=== PATIENT | female | born 1960 | race Caucasian/White ===

== ENCOUNTER 2019-12-28 14:33 | Emergency (ER) | payer MEDICAID, OTHER ==
[2019-12-28 15:09] LABS: BASOPHILS # (AUTO) 0.1 10^3/uL (0.0-0.1); BASOPHILS % (AUTO) 0.8 %; EOSINOPHILS # (AUTO) 0.2 10^3/uL (0.0-0.7); EOSINOPHILS % (AUTO) 1.9 %; HGB - HEMOGLOBIN 13.9 g/dL (12.0-16.0); LYMPHOCYTES # (AUTO) 3.5 10^3/uL (1.5-3.5); LYMPHOCYTES % (AUTO) 37.8 %; MEAN CORPUSCULAR HEMOGLOBIN 30.7 pg (27.0-31.0); MEAN CORPUSCULAR HGB CONC 32.6 g/dL (32.0-36.0); MEAN PLATELET VOLUME 9.7 fL (7.9-10.8); MONOCYTES # (AUTO) 0.7 10^3/uL (0.0-1.0); MONOCYTES % (AUTO) 7.6 %; NEUTROPHILS # (AUTO) 4.8 10^3/uL (1.5-6.6); NEUTROPHILS % (AUTO) 51.5 %; PLT - PLATELET COUNT 238 10^3/uL (130-450); RED BLOOD COUNT 4.53 10^6/uL (4.20-5.40); RED CELL DISTRIBUTION WIDTH 13.1 % (12.0-15.0); WHITE BLOOD COUNT 9.3 x10^3/uL (4.8-10.8)
[2019-12-28 15:20] LABS: ALBUMIN 4.2 g/dL (3.2-5.5); ALBUMIN/GLOBULIN RATIO 1.7 (1.0-2.2); BILIRUBIN,TOTAL 1.2 mg/dL (0.2-1.0); CALCIUM 9.3 mg/dL (8.5-10.3); CREATININE 0.7 mg/dL (0.4-1.0); TOTAL PROTEIN 6.7 g/dL (6.7-8.2)
--- NOTE | 2019-12-28 15:26 | XRAY Report ---
Reason: Chest pain Procedure Date: 12/28/2019 Accession Number: [id number] / [id number] Procedure: XR - Chest 1 View X-Ray CPT Code: 30451 Final Report FULL RESULT: EXAM: CHEST RADIOGRAPHY 1 VIEW EXAM DATE: 12/28/2019. CLINICAL HISTORY: Chest pain. COMPARISON: None. TECHNIQUE: AP upright portable chest at 1457. FINDINGS: Lungs/Pleura: Normal vasculature. The lungs are clear. No pleural fluid or pneumothorax. Mediastinum: Normal cardiac and mediastinal contours. Bones: Degenerative changes of the spine. IMPRESSION: Normal examination. RADIA
--- NOTE | 2019-12-28 15:31 | ED Physician Documentation ---
History of Present Illness - Stated complaint Stated Complaint: PALPITATIONS/FATIGUE - Chief complaint Chief Complaint: Cardiac - History obtained from History obtained from: Patient - History of Present Illness Timing: How many days ago (3) Pain level max: 2 Pain level now: 1 - Additonal information Additional information: 59-year-old female presents to the emergency department stating that she has just not felt right for the past 3 days. She states she feels tired and fatigued. Occasionally she feels short of breath. Occasionally she feels like her heart races. Occasionally she gets a sharp pain in the left side of her neck. Currently she is feeling fine sitting here relaxing. She was started on Jardiance for diabetes approximately a month ago. She also takes allergy medication. She states she has been eating and drinking normally. Review of Systems Ten Systems: 10 systems reviewed and negative Constitutional: denies: Fever, Chills Ears: denies: Ear pain Nose: denies: Rhinorrhea / runny nose, Congestion GI: denies: Abdominal Pain, Vomiting, Diarrhea Skin: denies: Rash Musculoskeletal: denies: Neck pain, Back pain Neurologic: denies: Headache PD PAST MEDICAL HISTORY - Past Medical History Past Medical History: No - Past Surgical History Past Surgical History: No - Allergies Allergies/Adverse Reactions: Allergies Allergy/AdvReac Type Severity Reaction Status Date / Time Penicillins Allergy Anaphylaxis Verified 12/28/19 14:50 - Living Situation Living Arrangement: reports: At home - Social History Does the pt smoke?: No Does the pt have substance abuse?: No - Family History Family history: reports: Non contributory PD ED PE NORMAL - Vitals Vital signs reviewed: Yes - General General: Alert and oriented X 3, No acute distress, Well developed/nourished - HEENT HEENT: Moist mucous membranes - Neck Neck: Supple, no meningeal sign - Cardiac Cardiac: RRR, Strong equal pulses - Respiratory Respiratory: No respiratory distress, Clear bilaterally - Abdomen Abdomen: Soft, Non tender, Non distended - Derm Derm: Warm and dry - Neuro Neuro: Alert and oriented X 3 - Psych Psych: Normal mood, Normal affect Results - Vitals Vitals: Vital Signs - 24 hr 12/28/19 12/28/19 12/28/19 14:45 15:25 16:00 Temperature 36.7 C Heart Rate 75 61 76 Respiratory 16 13 16 Rate Blood Pressure 180/92 H 157/70 H 155/61 H O2 Saturation 96 100 99 Oxygen O2 Source Room air - EKG (time done) 1446 Rate: Rate (enter#) (65) Rhythm: NSR Mcintosh: Normal Intervals: Normal NM QRS: Normal Ischemia: Normal ST segments, Q waves (V1-2) - Labs Labs: Laboratory Tests 12/28/19 12/28/19 12/28/19 15:00 15:00 15:00 WBC 9.3 RBC 4.53 Hgb 13.9 Hct 42.6 MCV 94.0 MCH 30.7 MCHC 32.6 RDW 13.1 Plt Count 238 MPV 9.7 Neut # (Auto) 4.8 Lymph # (Auto) 3.5 Bee # (Auto) 0.7 Eos # (Auto) 0.2 Baso # (Auto) 0.1 Absolute Nucleated RBC 0.00 Nucleated RBC % 0.0 Sodium 137 Potassium 3.8 Chloride 101 Carbon Dioxide 28 Anion Gap 8.0 BUN 22 H Creatinine 0.7 Estimated GFR (MDRD) 85 L Glucose 187 H Calcium 9.3 Total Bilirubin 1.2 H AST 29 ALT 31 Alkaline Phosphatase 78 Troponin I High Sens < 2.3 L Total Protein 6.7 Albumin 4.2 Globulin 2.5 Albumin/Globulin Ratio 1.7 Lipase 36 Urine Color Urine Clarity Urine pH Ur Specific [place] Urine Protein Urine Glucose (UA) Urine Ketones Urine Occult Blood Urine Nitrite Urine Bilirubin Urine Urobilinogen Ur Leukocyte Esterase Ur Microscopic Review Urine Culture Comments 12/28/19 15:40 WBC RBC Hgb Hct MCV MCH MCHC RDW Plt Count MPV Neut # (Auto) Lymph # (Auto) Bee # (Auto) Eos # (Auto) Baso # (Auto) Absolute Nucleated RBC Nucleated RBC % Sodium Potassium Chloride Carbon Dioxide Anion Gap BUN Creatinine Estimated GFR (MDRD) Glucose Calcium Total Bilirubin AST ALT Alkaline Phosphatase Troponin I High Sens Total Protein Albumin Globulin Albumin/Globulin Ratio Lipase Urine Color YELLOW Urine Clarity CLEAR Urine pH 5.0 Ur Specific [place] 1.025 Urine Protein NEGATIVE Urine Glucose (UA) >=1000 H Urine Ketones NEGATIVE Urine Occult Blood NEGATIVE Urine Nitrite NEGATIVE Urine Bilirubin NEGATIVE Urine Urobilinogen 0.2 (NORMAL) Ur Leukocyte Esterase NEGATIVE Ur Microscopic Review NOT INDICATED Urine Culture Comments NOT INDICATED - Rads (name of study) cxr Radiology: Prelim report reviewed, EMP read contemporaneously, See rad report (Normal examination. ) PD MEDICAL DECISION MAKING - ED course Complexity details: reviewed results, re-evaluated patient, considered differential (No ST elevation OR, no aortic dissection, no PE, no tension pneumothorax, no aortic aneurysm), d/w patient ED course: 59-year-old female with what appears to be dehydration. She feels better after IV fluids. No evidence of acute coronary syndrome. No evidence of PE. No evidence of aortic dissection. She is very well-appearing, nontoxic. Afebrile. Patient counseled regarding signs and symptoms for which I believe and urgent re-evaluation would be necessary. Patient with good understanding of and agreement to plan and is comfortable going home at this time This document was made in part using voice recognition software. While efforts are made to proofread this document, sound alike and grammatical errors may occur. We did have an unusually warm weekend last weekend with temperatures on Thursday reaching over 80 degrees. Departure - Departure Disposition: 01 Home, Self Care Clinical Impression: Dehydration, Palpitations, Atypical chest pain Condition: Good Instructions: ED Chest Pain Atypical Unkn Cause, ED Dehydration Follow-Up: Yanelis Schwartz MD [Primary Care Provider] - Within 1 week Comments: Your tests are normal today. There is no evidence of heart attack. No evidence of blood clot in the lungs. No evidence of lethal arrhythmia. If the palpitations continue, you should have a Holter monitor with your doctor. Return if you worsen
[2019-12-28 15:50] LABS: BILIRUBIN,URINE NEGATIVE (NEGATIVE); CLARITY,URINE CLEAR (CLEAR); GLUCOSE, URINE (UA) >=1000 mg/dL (NEGATIVE); KETONES,URINE (UA) NEGATIVE (NEGATIVE); LEUKOCYTE ESTERASE, URINE NEGATIVE (NEGATIVE); NITRITE,URINE NEGATIVE (NEGATIVE); OCCULT BLOOD,URINE NEGATIVE (NEGATIVE); PROTEIN,URINE NEGATIVE (NEGATIVE); UROBILINOGEN,URINE 0.2 (NORMAL) E.U./dL (NORMAL)
[2019-12-28] MEDS: SODIUM CHLORIDE 0.9% 1,000 ML IV ONE (16:35)
[2019-12-28 17:12] VITALS: BP 126/95
== END 2019-12-28 17:11 | disposition home or self-care (01) ==
LOC: ED 14:33
DX: E86.0 Dehydration (principal); R00.2 Palpitations; R07.89 Other chest pain; E11.9 Type 2 diabetes mellitus without complications; Z79.84 Long term (current) use of oral hypoglycemic drugs
CPT/HCPCS: 36415; 71045; 80053; 81001; 81003; 83690; 84484; 85025; 87086; 93005; 96360; 99284

== ENCOUNTER 2020-08-24 08:26 | Outpatient (CLI) | payer MEDICAID, OTHER ==
--- NOTE | 2020-08-24 10:10 | XRAY Report ---
PROCEDURE: Hip 1 View LT INDICATIONS: LEFT HIP PAIN TECHNIQUE: Frontal view of the pelvis, lateral view of the left hip. COMPARISON: None FINDINGS: Bones: No fractures or dislocations. No suspicious bony lesions. The visualized pelvic ring appear s intact. Soft tissues: No suspicious soft tissue calcifications or masses. IMPRESSION: No source of pain found, left hip. Reviewed by: Stephon Bustillo MD on 08/24/2020 10:09 AM [facility] Approved by: Stephon Bustillo MD on 08/24/2020 10:09 AM [facility] Station ID: [id number]
== END 2020-08-24 23:59 | disposition home or self-care (01) ==
LOC: DI.WCP 08:26
PROVIDERS: ATTEND Nurse Practitioner Family
DX: M25.552 Pain in left hip (principal)

== ENCOUNTER 2020-09-05 10:24 | Outpatient (CLI) | payer MEDICAID ==
--- NOTE | 2020-09-06 11:25 | Mammography Report ---
BILATERAL DIGITAL SCREENING MAMMOGRAM 3D/2D: 09/05/2020 CLINICAL: Routine screening. No prior exams were available for comparison. The tissue of both breasts is heterogeneously dense. T his may lower the sensitivity of mammography. There is an oval low density focal asymmetry in the right breast at 2 o'clock anterior depth. Findin g is seen only on tomography. There also is a fat containing global asymmetry in the right breast at 12 o'clock anterior depth. Additionally, there is an oval focal asymmetry in the right breast at 3 o'clock anterior depth. Find ing is seen only on tomography. No other significant masses, calcifications, or other findings are seen in either breast. IMPRESSION: INCOMPLETE: NEEDS ADDITIONAL IMAGING EVALUATION 1) The oval low density focal asymmetry in the right breast at 2 o'clock anterior depth resembles a c yst and is indeterminate. 2) The fat containing global asymmetry in the right breast at 12 o'clock anterior depth is indetermin ate. 3) The oval focal asymmetry in the right breast at 3 o'clock anterior depth resembles a cyst and is i ndeterminate. Additional views with possible ultrasound are recommended. This exam was interpreted at Station ID: [id number]. NOTE: For mammograms, a report in lay terms will be sent to the patient. Approximately 15% of breast malignancies will not be visualized mammographically. In the management of a palpable breast mass, a negative mammogram must not discourage biopsy of a clinically suspicious lesion. Electronically Signed By: Drew He M.D. slc/:09/05/2020 15:51:29 ACR BI-RADS Category 0: Incomplete 3340F PARENCHYMAL PATTERN: (D) - The breast(s) demonstrate(s) heterogeneously dense fibroglandular parkatlyny bijan. BI-RADS CATEGORY: (0) - 0 Mammo and [place] [id number] Immediate follow-up LATERALITY: (B)
== END 2020-09-05 10:25 | disposition home or self-care (01) ==
LOC: DI.N 10:24
DX: Z12.31 Encounter for screening mammogram for malignant neoplasm of breast (principal); N64.89 Other specified disorders of breast

== ENCOUNTER 2020-10-03 08:24 | Outpatient (CLI) | payer MEDICAID ==
--- NOTE | 2020-10-04 16:48 | Ultrasound Report ---
LIMITED ULTRASOUND OF RIGHT BREAST: 10/03/2020 CLINICAL: Palpable right breast lump and focal pain at area of trauma. Comparison is made to exams dated: 10/03/2020 mammogram and 09/05/2020 mammogram - [facility]. Color flow ultrasound of the right breast 12-3 o'clock region was performed. Little scale images of th e real-time examination were reviewed. There is a 5.6 cm x 5.8 cm x 2.1 cm oval mass in the right breast at 1 o'clock anterior depth 6 cm fr om the nipple. This oval mass is hyperechoic but of mixed echogenicity. This correlates as palpated and with mammography findings. There also is a 3.2 cm x 2.3 cm x 1.6 cm oval mass with a circumscribed margin in the right breast at 4 o'clock middle depth 6 cm from the nipple. This oval mass is of mixed echogenicity. This correla rupinder as palpated and with mammography findings. IMPRESSION: PROBABLY BENIGN The 5.6 cm x 5.8 cm x 2.1 cm oval mass in the right breast at 1 o'clock anterior depth most likely is a hematoma or fat necrosis and is probably benign. The 3.2 cm x 2.3 cm x 1.6 cm oval mass in the right breast at 4 o'clock middle depth likely represent s a hematoma or fat necrosis and is probably benign. A follow-up right mammogram and an ultrasound in 6 months is recommended to demonstrate stability. This exam was interpreted at Station ID: [id number]. Electronically Signed By: Wally escobar:10/03/2020 09:48:18 Ultrasound BI-RADS: 3 Probably benign BI-RADS CATEGORY: (3) - 3 Mammo and US [id number] 6 month follow-up LATERALITY: (R)
--- NOTE | 2020-10-04 16:50 | Mammography Report ---
UNILATERAL RIGHT DIGITAL DIAGNOSTIC MAMMOGRAM 3D/2D: 10/03/2020 CLINICAL: Additional evaluation requested from prior study. Short term follow up of the right breast. Comparison is made to exam dated: 09/05/2020 mammogram - [facility]. The tissue of right breast is heterogeneously dense. This may lower the sensitivity of mammography. Of note, patient reports trauma to the breast in June 2020 (bitten by a horse) with associated ed mps and hematomas. There is an oval low density focal asymmetry with an obscured margin in the right breast at 3 o'clock anterior depth. This is seen in additional views. This correlates as palpated. There also is an oval focal asymmetry with an obscured margin in the right breast at 1 o'clock anteri or depth. This is seen in additional views. This correlates as palpated. This lesion is located i nside of and is likely a part of the previously described global asymmetry. No other significant masses or calcifications are seen in the breast. IMPRESSION: INCOMPLETE: NEEDS ADDITIONAL IMAGING EVALUATION The oval low density focal asymmetry in the right breast at 3 o'clock anterior depth is indeterminate . An ultrasound is recommended. The oval focal asymmetry in the right breast at 1 o'clock anterior depth is indeterminate. This exam was interpreted at Station ID: [id number]. NOTE: For mammograms, a report in lay terms will be sent to the patient. Approximately 15% of breast malignancies will not be visualized mammographically. In the management of a palpable breast mass, a negative mammogram must not discourage biopsy of a clinically suspicious lesion. SUMMARY: Targeted ultrasound is recommended for further evaluation and will be scheduled immediately following this exam. Electronically Signed By: Wally logan/micaela:10/03/2020 09:44:32 ACR BI-RADS Category 0: Incomplete 3340F PARENCHYMAL PATTERN: (D) - The breast(s) demonstrate(s) heterogeneously dense fibroglandular tato thakkar. BI-RADS CATEGORY: (0) - 0 Ultrasound [id number] Immediate follow-up LATERALITY: (R)
== END 2020-10-03 08:25 | disposition home or self-care (01) ==
LOC: DI 08:24
PROVIDERS: ATTEND Nurse Practitioner Family
DX: N63.15 Unspecified lump in the right breast, overlapping quadrants (principal)

== ENCOUNTER 2021-02-22 09:59 | Outpatient (CLI) | payer MEDICAID ==
--- NOTE | 2021-02-22 13:16 | XRAY Report ---
PROCEDURE: Lumbar Spine Complete INDICATIONS: DEGENERATIVE DISC DISEASE, LUMBAR SPINE TECHNIQUE: 4 views of the lumbar spine were acquired. COMPARISON: None. FINDINGS: Bones: 5 [id number] vertebrae are present. There is facet arthrosis in the lower lumbar spine. Disc space narrowing at L4-5 is seen consistent with disc disease. There is normal bony alignment. N o vertebral body compression fractures. No suspicious bony lesions. There is mild rightward curvatu re of the lumbar spine. Soft tissues: Overlying bowel gas pattern is normal. No suspicious soft tissue calcifications. IMPRESSION: 1. Degenerative changes and facet arthrosis in the lower lumbar spine. 2. Degenerative disc disease at L4-5. Reviewed by: Melo Strickland on 02/22/2021 1:14 PM PDT Approved by: Melo Strickland on 02/22/2021 1:14 PM PDT Station ID: [id number]
--- NOTE | 2021-02-22 15:55 | XRAY Report ---
PROCEDURE: Cervical Spine Complete INDICATIONS: DJD CERVICAL SPINE TECHNIQUE: 5 view(s) of the cervical spine were acquired. COMPARISON: None. FINDINGS: Bones: Normal cervical spine vertebral body height and alignment. Disc spaces are maintained. There i s mild facet and uncovertebral hypertrophy at C4-C5 and C5-C6 protruding to at least mild neural fora rony narrowing bilaterally at these levels. Soft tissues: No prevertebral soft tissue swelling. IMPRESSION: Mild degenerative changes at C4-C5 and C5-C6 with mild neural foraminal narrowing. Consi kam MRI for further evaluation. Reviewed by: Himanshu Triplett MD on 02/22/2021 3:54 PM PDT Approved by: Himanshu Triplett MD on 02/22/2021 3:54 PM PDT Station ID: [id number]
== END 2021-02-22 10:00 | disposition home or self-care (01) ==
LOC: DI.N 09:59
PROVIDERS: ATTEND Family Medicine
DX: M51.36 Other intervertebral disc degeneration, lumbar region (principal); M47.812 Spondylosis without myelopathy or radiculopathy, cervical region; M47.816 Spondylosis without myelopathy or radiculopathy, lumbar region

== ENCOUNTER 2022-04-15 08:00 | Outpatient (CLI) | payer MEDICAID | END 2022-04-15 23:59 | disposition home or self-care (01) | LOC: LAB.N 08:00 | PROVIDERS: ATTEND Physician Assistant | DX: Z12.11 Encounter for screening for malignant neoplasm of colon (principal) | CPT/HCPCS: 82274 ==

== ENCOUNTER 2022-08-27 09:40 | Outpatient (CLI) | payer MEDICAID ==
--- NOTE | 2022-08-28 12:03 | Ultrasound Report ---
LIMITED ULTRASOUND OF RIGHT BREAST: 08/27/2022 CLINICAL: Patient returns today to evaluate an asymmetries in the right breast. 6 month follow-up of cysts / hematomas. Comparison is made to exams dated: 08/27/2022 mammogram - [facility], 02/03/2022 ult rasound, 02/03/2022 mammogram - [facility], 10/03/2020 ultrasound, 10/03/2020 mammogram, and mammogram - [facility]. Color flow and real-time ultrasound of the right breast upper inner quadrant were performed. Little sc prem images of the real-time examination were reviewed. There is a clusters of round cysts in the right breast superior medial quadrant anterior depth. Thes e cysts are anechoic and hypoechoic. These abnormalities are not significantly changed and correlate with mammography findings. There are related rim calcifications. There also is a 1.7 cm x 1 cm x 0.8 cm oval mass in the right breast at 3 o'clock middle depth 7 cm f rom the nipple. This oval mass is hypoechoic but of mixed echogenicity. This abnormality is decreas ed in size and correlates as palpated and with mammography findings. Color flow imaging demonstrates that there is no vascularity present. Additionally, there is a 1.3 cm x 1.7 cm x 0.5 cm irregular mass in the right breast at 1 o'clock mid dle depth. This irregular mass is hyperechoic. This abnormality is decreased in size. There are ca lcifications within the mass as seen mammographically. Color flow imaging demonstrates that there is no vascularity present. IMPRESSION: PROBABLY BENIGN The cysts in the right breast superior medial quadrant anterior depth are consistent with oil cysts o r complicated cysts and fat necrosis, and are probably benign. The 1.7 cm x 1 cm x 0.8 cm oval mass in the right breast at 3 o'clock middle depth is consistent with a hematoma or fat necrosis and is probably benign. The 1.3 cm x 1.7 cm x 0.5 cm irregular mass in the right breast at 1 o'clock middle depth most likely is a hematoma or fat necrosis and is probably benign. All findings remain consistent with expected evolution of tissue following breast trauma. A follow-up right mammogram and an ultrasound in 12 months is recommended. Patient will be due for left breast mammogram at the same time. Findings and recommendations were conveyed to the patient at time of exam. This exam was interpreted at Station ID: [id number]. Electronically Signed By: Meri mares/:08/27/2022 12:32:16 Ultrasound BI-RADS: 3 Probably benign BI-RADS CATEGORY: (3) - 3 Mammo and US [id number] 12 month follow-up LATERALITY: (R)
--- NOTE | 2022-08-28 12:03 | Mammography Report ---
UNILATERAL RIGHT DIGITAL DIAGNOSTIC MAMMOGRAM 3D/2D WITH MAGNIFICATION: 08/27/2022 CLINICAL: Patient returns for a 6 month follow up of the right breast. Comparison is made to exams dated: 02/03/2022 mammogram - [facility], 10/03/2020 mammogram, 09/05/19 21 mammogram - [facility], and 02/03/2022 ultrasound - [facility]. The right breast is heterogeneously dense, which may obscure small masses (category c / 51-75% glandu lar tissue). Patient has a history of right breast trauma. There is a low density asymmetry with an obscured margin in the right breast at 12 o'clock anterior d epth. This is not significantly changed and correlates as palpated. There also is a 1.9 cm oval focal asymmetry with an obscured margin in the right breast at 3 o'clock anterior depth. This is seen in additional views. This is not significantly changed and correlates as palpated. Additionally, there are grouped amorphous dystrophic rim calcifications in the right breast at 12 o'c lock anterior depth. These are more prominent and increased in number. No other significant masses or calcifications are seen in the breast. IMPRESSION: INCOMPLETE: NEEDS ADDITIONAL IMAGING EVALUATION The asymmetry in the right breast at 12 o'clock anterior depth likely represents fat necrosis or prev ious trauma and is fairly stable. An ultrasound is recommended. The 1.9 cm oval focal asymmetry in the right breast at 3 o'clock anterior depth resembles a hematoma, fat necrosis, or previous trauma and is stable. An ultrasound is recommended. The grouped amorphous dystrophic rim calcifications in the right breast at 12 o'clock anterior depth most likely are fat necrosis or previous trauma and are probably benign. Ultrasound is recommended for full evaluation of these areas. This was performed immediately followin g this exam. Based on the Tyrer Cuzick model (a risk assessment model) the patients lifetime risk is 11.5% and he r 10 year risk is 5.0%. According to the ACR, ACS, and NCCN guidelines, an annual breast MRI exam estefanía ng with mammogram is recommended if the patients lifetime risk is 20% or greater. This exam was interpreted at Station ID: [id number]. NOTE: For mammograms, a report in lay terms will be sent to the patient. Approximately 15% of breast malignancies will not be visualized mammographically. In the management of a palpable breast mass, a negative mammogram must not discourage biopsy of a clinically suspicious lesion. Electronically Signed By: Meri mares/:08/27/2022 10:41:50 ACR BI-RADS Category 0: Incomplete 3340F PARENCHYMAL PATTERN: (D) - The breast(s) demonstrate(s) heterogeneously dense fibroglandular parenchy ma. BI-RADS CATEGORY: (0) - 0 Ultrasound [id number] Immediate follow-up LATERALITY: (B)
== END 2022-08-27 09:41 | disposition home or self-care (01) ==
LOC: DI 09:40
PROVIDERS: ATTEND Physician Assistant
DX: R92.8 Other abnormal and inconclusive findings on diagnostic imaging of breast (principal); N60.11 Diffuse cystic mastopathy of right breast

== ENCOUNTER 2022-12-23 09:54 | Outpatient (CLI) | payer MEDICAID ==
[2022-12-23 12:23] LABS: THYROID STIMULATING HORMONE 2.41 uIU/mL (0.34-5.60)
== END 2022-12-23 09:55 | disposition home or self-care (01) ==
LOC: LAB.N 09:54
PROVIDERS: ATTEND Physician Assistant
DX: N95.1 Menopausal and female climacteric states (principal)
CPT/HCPCS: 36415; 84443

== ENCOUNTER 2023-01-05 08:00 | Outpatient (CLI) | payer MEDICAID ==
--- NOTE | 2023-01-05 14:01 | XRAY Report ---
PROCEDURE: Hand 3 View RT INDICATIONS: RIGHT HAND PAIN TECHNIQUE: 3 views of the hand(s) acquired. COMPARISON: None. FINDINGS: Bones: No fractures or dislocations. Several tiny juxta-articular lucencies are seen at the first I P and MCP joint, at the second through fourth DIP joint, and at the second carpometacarpal joint. No suspicious bony lesions. Soft tissues: No suspicious soft tissue calcifications or masses. IMPRESSION: 1. No acute process. 2. Several periarticular lucencies may indicate early inflammatory arthritis. Correlate clinically. Reviewed by: Meri Olmos MD on 01/05/2023 2:00 PM PDT Approved by: Meri Olmos MD on 01/05/2023 2:00 PM PDT Station ID: [id number]
== END 2023-01-05 23:59 | disposition home or self-care (01) ==
LOC: DI.WOS 08:00
PROVIDERS: ATTEND Orthopaedic Surgery
DX: M65.321 Trigger finger, right index finger (principal)

== ENCOUNTER 2023-01-21 12:38 | Outpatient (CLI) | payer MEDICAID ==
--- NOTE | 2023-01-21 15:21 | MRI Report ---
PROCEDURE: HAND WO - RT INDICATIONS: RIGHT HAND PAIN TECHNIQUE: Noncontrast coronal T1 spin echo and T2 fast spin echo with fat saturation, axial proton density fast spin echo and T2 fast spin echo with fat saturation, sagittal T1 spin echo and STIR through the hand and fingers. COMPARISON: Right hand radiograph dated 01/05/2023 and 03/03/2022. FINDINGS: Image quality: Excellent. Bones: Fiducial marker is placed over volar aspect of right hand at the level of second metacarpal he ad. Mild right hand and wrist joint osteoarthritic changes are seen with joint space narrowing. No ma rrow edema. No fracture or dislocation. No suspicious intraosseous lesions. Interphalangeal joint(s): The accessory and proper collateral ligaments appear intact. The volar pl ate demonstrates normal morphology. The extensor central slips appear intact on sagittal images. Metacarpophalangeal joint(s): Mildly thickened ulnar collateral ligaments of second MCP joint is see n with mild adjacent edema. The radial collateral ligaments are intact. The accessory and proper laura ateral ligaments appear intact, as well as the volar plate and adjacent deep transverse metacarpal li gaments. The sagittal bands of the extensor maya appear normal. Extensor apparatus: The central slips insert normally on the middle phalangeal base. The conjoint a nd terminal tendons insert normally on the distal phalangeal bases. More proximal portions of the ex tensor tendons also appear normal. Flexor apparatus: The flexor digitorum superficialis and profundus tendons of the second digit both appear thickened at the level of second MCP joint with surrounding soft tissue edema. All annular and cruciform pulleys appear intact, without adjacent soft tissue edema. Soft tissues: Visualized muscles demonstrate normal bulk and internal signal. No intramuscular mass es identified. No ganglion cysts. IMPRESSION: 1. Tendinosis involving second digit flexor tendons at the level of second MCP joint and second proxi mal phalangeal shaft. No tendon rupture. 2. Low-grade sprain involving ulnar collateral ligament of second MCP joint. 3. No marrow edema. No fracture or dislocation. 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 Reviewed by: Tobi Zavala MD on 01/21/2023 3:20 PM PDT Approved by: Tobi Zavala MD on 01/21/2023 3:20 PM PDT Station ID: [id number]
== END 2023-01-21 12:39 | disposition home or self-care (01) ==
LOC: DI 12:38
PROVIDERS: ATTEND Orthopaedic Surgery
DX: M67.843 Other specified disorders of tendon, right hand (principal); S63.650A Sprain of metacarpophalangeal joint of right index finger, initial encounter; M19.041 Primary osteoarthritis, right hand; M19.031 Primary osteoarthritis, right wrist

== ENCOUNTER 2023-04-06 09:32 | Outpatient (CLI) | payer MEDICAID ==
[2023-04-06 11:53] LABS: RHEUMATOID FACTOR NEGATIVE (Negative)
[2023-04-08 19:07] LABS: ANTINUCLEAR ANTIBODIES IFA Negative (.)
== END 2023-04-06 09:33 | disposition home or self-care (01) ==
LOC: LAB.N 09:32
PROVIDERS: ATTEND Physician Assistant
DX: H04.129 Dry eye syndrome of unspecified lacrimal gland (principal)
CPT/HCPCS: 86038; 86430

== ENCOUNTER 2023-04-16 11:07 | Outpatient (CLI) | payer MEDICAID ==
[2023-04-17 19:08] LABS: SJOGREN'S ANTI-SS-A <0.2 AI (0.0-0.9); SJOGREN'S ANTI-SS-B <0.2 AI (0.0-0.9)
== END 2023-04-16 11:08 | disposition home or self-care (01) ==
LOC: LAB.N 11:07
PROVIDERS: ATTEND Nurse Practitioner
DX: Z08 Encounter for follow-up examination after completed treatment for malignant neoplasm (principal); Z86.006 Personal history of melanoma in-situ; L57.0 Actinic keratosis; D48.5 Neoplasm of uncertain behavior of skin; L30.4 Erythema intertrigo; D22.5 Melanocytic nevi of trunk; K11.7 Disturbances of salivary secretion
CPT/HCPCS: 86235

== ENCOUNTER 2023-04-27 08:00 | Outpatient (CLI) | payer MEDICAID ==
[2023-04-27 13:03] LABS: FECAL OCCULT BLOOD (FIT) NEGATIVE (NEGATIVE)
== END 2023-04-27 23:59 | disposition home or self-care (01) ==
LOC: LAB.N 08:00
PROVIDERS: ATTEND Physician Assistant
DX: Z12.11 Encounter for screening for malignant neoplasm of colon (principal)
CPT/HCPCS: 82274

== ENCOUNTER 2023-09-16 10:47 | Outpatient (CLI) | payer MEDICAID ==
--- NOTE | 2023-09-17 15:56 | Ultrasound Report ---
LIMITED ULTRASOUND OF RIGHT BREAST: 09/16/2023 CLINICAL: Patient returns today to evaluate asymmetries in right breast. Comparison is made to exams dated: 09/16/2023 mammogram, 08/27/2022 ultrasound, 08/27/2022 mammogram - [facility], 02/03/2022 ultrasound, 02/03/2022 mammogram - [facility], and ultrasound - [facility]. Color flow ultrasound of the right breast 12-1 o'clock and 3 o'clock regions was performed. Little sca le images of the real-time examination were reviewed. There is a cluster of multiple round cysts in the right breast superior lateral quadrant anterior dep th. These clusters of round cysts are anechoic and hypoechoic. These abnormalities are not signific antly changed and correlate with mammography findings. There are related rim calcifications. There also is a 1.5 cm x 0.9 cm x 0.7 cm wider than tall oval mass in the right breast at 3 o'clock m iddle depth 7 cm from the nipple. This oval mass is hypoechoic but of mixed echogenicity. This abno rmality is not significantly changed and correlates as palpated and with mammography findings. Color flow imaging demonstrates that there is no vascularity present. Additionally, there is a 1 cm x 0.9 cm x 0.4 cm irregular mass in the right breast at 1 o'clock middl e depth 7 cm from the nipple. This irregular mass is hyperechoic. This abnormality is decreased in size. There are calcifications within the mass as seen mammographically. Color flow imaging demonst rates that there is no vascularity present. IMPRESSION: PROBABLY BENIGN The cluster of multiple round cysts in the right breast superior lateral quadrant anterior depth are consistent with an oil cysts or complicated cysts and are probably benign. The 1.5 cm x 0.9 cm x 0.7 cm wider than tall oval mass in the right breast at 3 o'clock middle depth is consistent with a hematoma or fat necrosis and is probably benign. The 1 cm x 0.9 cm x 0.4 cm irregular mass in the right breast at 1 o'clock middle depth most likely i s a hematoma or fat necrosis and is probably benign. A follow-up bilateral mammogram and a right ultrasound in 12 months is recommended to document long t erm stability. Findings and recommendations were conveyed to the patient during today's evaluation. This exam was interpreted at Station ID: [id number]. Electronically Signed By: Jeovany Jena M.D. aty/:09/16/2023 15:20:24 Ultrasound BI-RADS: 3 Probably benign BI-RADS CATEGORY: (3) - 3 Mammo and [place] [id number] 12 month follow-up LATERALITY: (B)
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
== END 2023-09-16 10:48 | disposition home or self-care (01) ==
LOC: DI 10:47
PROVIDERS: ATTEND Physician Assistant
DX: N60.11 Diffuse cystic mastopathy of right breast (principal); N63.15 Unspecified lump in the right breast, overlapping quadrants; N63.12 Unspecified lump in the right breast, upper inner quadrant

== ENCOUNTER 2024-01-14 16:33 | Emergency (ER) | payer OTHER, MEDICAID ==
[2024-01-14 16:53] VITALS: BP 157/89; O2SAT 100
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
[2024-01-14] MEDS: diazePAM 5 MG TABLET PO STA (18:24)
[2024-01-14] MEDS: KETOROLAC 30 MG/ML VIAL IM STA (18:24)
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
== END 2024-01-14 19:06 | disposition home or self-care (01) ==
LOC: ED 16:33
DX: D32.9 Benign neoplasm of meninges, unspecified (principal); S13.4XXA Sprain of ligaments of cervical spine, initial encounter; V59.40XA Driver of pick-up truck or van injured in collision with unspecified motor vehicles in traffic accident, initial encounter; Y92.410 Unspecified street and highway as the place of occurrence of the external cause; E11.9 Type 2 diabetes mellitus without complications
CPT/HCPCS: 96372; 99284